=== PATIENT | male | born 1950 | race Caucasian/White ===

== ENCOUNTER 2018-05-20 06:08 | Inpatient (IN) ==
[2018-05-20] MEDS ORDERED: Chlorhexidine Gluconate 2% 1 Pack (2 Cloths) TOPICAL SCH (06:45)
[2018-05-20] MEDS ORDERED: ceFAZolin 2 GM IV; once IV.SIG SCH (06:45)
[2018-05-20] MEDS ORDERED: Metoprolol Tartrate 25 MG Tablet PO SCH (06:45)
[2018-05-20] MEDS ORDERED: Sodium Chlor 0.9% Inj 500 ML IV.SIG SCH (07:00)
[2018-05-20] MEDS ORDERED: Sugammadex Inj 200 MG/2 ML Vial IV.PUSH ONE (08:22)
[2018-05-20] MEDS ORDERED: Famotidine PF Inj 20 MG/2 ML Vial ONE (08:22)
--- NOTE | 2018-05-20 10:02 | P.OP ---
- Preoperative Diagnosis (1) Diverticulitis - Postoperative Diagnosis (1) Benign bladder mass (2) Diverticulitis Date of procedure: 05/20/18 Procedure: Cystoscopy with biopsy of bladder mass and placement of bilateral ureteral catheters Anesthesia: JANELL Surgeon: Lucho Kowalski DO Estimated blood loss (mL): 0 Operation and Findings: 68-year-old male who elected to undergo robotic colectomy by Dr. Barajas for history of diverticular disease. Request made for bilateral ureteral catheter insertion. The patient was brought to the operating room and placed in the dorsal lithotomy position. He was prepped and draped in usual sterile fashion received preprocedure antibiotics and received general endotracheal tube anesthesia. 22 Libyan cystoscope was inserted the bladder and near the left ureteral orifice at the trigone a little frondular area was identified. Using the cold cup biopsy forceps this was biopsied. This was sent to pathology. The left ureteral orifice was identified and a 5 Libyan open-ended catheter inserted in the left ureter without difficulty. This was repeated on the right side without difficulty. The Thakkar was then inserted and the catheters were attached to the Thakkar. The patient tolerated procedure well.
[2018-05-20] MEDS ORDERED: Phenylephrine/NS 1000 MCG/10ML Syringe IV.PUSH ONE (12:00)
[2018-05-20] MEDS ORDERED: Lidocaine PF 1% Inj 5 ML Syringe INFILTRATN ONE (12:00)
[2018-05-20] MEDS ORDERED: Glycopyrrolate Inj 1 MG/5 ML Syringe IV.PUSH ONE (12:00)
[2018-05-20] MEDS ORDERED: Heparin - SQ 10,000 UNITS/ML Vial SQ SCH (14:15)
[2018-05-20] MEDS ORDERED: fentaNYL Citrate Inj 100 MCG/2 ML Ampul ONE (14:40)
[2018-05-20] MEDS ORDERED: Morphine Inj 4 MG/ML Vial ONE (14:40)
[2018-05-20] MEDS ORDERED: Morphine Inj 30 MG/30 ML PCA.VIAL PCA ONE (14:41)
[2018-05-20] MEDS ORDERED: *Meperidine Inj 25 MG/ML Vial PERIprocedural Use ONLY ONE (14:57)
[2018-05-20] MEDS: Dextrose 5%/NaCl 0.9% Inj 1,000 ML IV.CONT SCH ×2 (15:12→23:15)
[2018-05-20] MEDS ORDERED: Naloxone Inj 0.4 MG/ML Vial IV.PUSH PRN (15:17)
[2018-05-20 15:19] LABS: Baso % (Auto) 0.1 % (0.0-2.0); Hematocrit 41.1 % (39.0-51.0); Hemoglobin 13.8 gm/dL (13.0-17.0); Lymph # (Auto) 0.5 th/mm3 (1.0-4.8); Lymph % (Auto) 4.3 % (9.0-44.0); Mean Corpuscular HGB Conc 33.5 % (32.0-36.0); Mean Corpuscular Hemoglobin 31.1 pg (27.0-34.0); Mean Corpuscular Volume 92.8 fL (80.0-100.0); Mono # (Auto) 0.3 th/mm3 (0.0-0.9); Mono % (Auto) 2.9 % (0.0-8.0); Neut % (Auto) 92.7 % (16.0-70.0); Platelet Count 148 th/mm3 (150-450); Red Blood Count 4.42 mil/mm3 (4.50-5.90); Red Cell Distribution Width 13.4 % (11.6-17.2); White Blood Count 11.8 th/mm3 (4.0-11.0)
--- NOTE | 2018-05-20 15:20 | MP ---
cc: Alexandria Barajas MD, Gregory P DO DATE OF OPERATION: 05/20/2018 PREOPERATIVE DIAGNOSIS: Chronic diverticulitis. POSTOPERATIVE DIAGNOSES: 1. Chronic diverticulitis. 2. Adhesions. PROCEDURE PERFORMED: 1. Extensive robotic/laparoscopic lysis of adhesions. 2. Sigmoid resection. 3. Takedown of splenic flexure. SURGEON: Alexandria Barajas MD COUNTY DIRECTOR WELFARE: [place]. ANESTHESIA: General per ET tube. ESTIMATED BLOOD LOSS: 100 mL. OPERATIVE INDICATIONS: The patient is a 68-year-old male who has had multiple attacks of diverticulitis in the past, 3 in the last year. OPERATIVE COURSE: The patient was brought to the operating room and placed in the supine position. After induction of general anesthesia, the patient was placed in Geovanni stirrups and all bony prominences were carefully padded. The skin of the anterior abdominal wall as well as the perineal area was then prepped and draped in the usual sterile fashion. Dr. Kowalski then came in and performed cystoscopy and placement of bilateral ureteral catheters; please see his operative note for details. A site was then chosen for the camera, being located 2 cm to the right and above the umbilicus. A 10/12 trocar was placed at this location, under direct vision using the laparoscope. CO2 insufflation was then undertaken and a brief abdominal survey was performed. He did have some adhesions down in the right lower quadrant, but there was nothing else noted that would preclude the robotic approach. The #1 port, a #10/12, was placed just inside the right anterior superior iliac spine, and a #5 assist port was placed just underneath the costal margin, equidistant from the #1 and the camera port. The patient was hydroplaned with head down and slightly to the right and the small bowel was brought up and out of the pelvis. There was a small amount of small bowel that was adherent and this was dissected free using electrocautery. The descending colon was then examined and it did have quite a bit of adhesions up just around the splenic flexure and it was also quite short, so I did feel that we would need to take down the splenic flexure. The #2 port was then placed 3 fingerbreadths above the umbilicus, in the left midclavicular line, and the #3 port was placed on the umbilical line, in the left anterior axillary line. The robot was then docked. The sigmoid colon was retracted down and to the left, and the peritoneum was scored on the right. Dissection then continued posterior to the superior hemorrhoidal vessels until the left ureter was clearly identified and swept away from the specimen. The vessels were then dissected free circumferentially, and a white load of the [place] [employer] stapler was placed across the bowel at this level. This was closed, held for 30 seconds, fired and removed. There was no sign of any significant bleeding noted. The dissection then continued posteriorly down to the mid rectum. Dissection then continued in a cephalad direction, freeing the descending colon mesentery from Gerota's fascia to the furthest extent cephalad that we could get. The sigmoid colon was then carefully dissected free from its fairly copious adhesions to the left lateral pelvic sidewall and this dissection was continued up the lateral gutter meeting our previous dissection posteriorly. Dissection then continued up to the level of the splenic flexure, but not around it. There was quite a bit of omentum plastered over the top of the splenic flexure. The robot was then redocked over the left shoulder. The omentum was pulled away from the transverse colon and dissection was continued in this plane until a window was made. The dissection continued, and was quite difficult just due to the fatty tissue and everything being fairly adherent in this area, but eventually we were able to dissect through the adhesions and free the splenic flexure along its length, back to the level of the mid transverse colon. At this point, we had adequate length to come down all the way to the rectum. The bowel was evaluated where I had peeled the omentum off and it looked pink and healthy. The robot was again redocked over the left hip and dissection continued in the pelvis, freeing the right and left side up and around, but not into the cul-de-sac. Eventually, we had nice mobility of the bowel. A sponge stick was placed in the rectum and came up nicely to the proximal rectum-mid rectum junction. A site was then chosen for division, just distal to the junction, and the mesentery was divided using the Harmonic scalpel. A 29 EEA stapler was placed into the anus and advanced to that area and came up without difficulty. An [place] [employer] stapler was placed across the bowel at this level. This was fired and removed, and the proximal stapled end of the bowel was grasped with a locking grasper. The robot was then undocked. A 10-12 cm transverse incision was made in the suprapubic area. Using electrocautery, dissection was carried down to the fascia of the anterior abdominal wall, which was split. The medial fibers of the rectus abdominis muscle were split, and the posterior fascia was incised the length of the skin incision as well. A wound protector was then placed and the proximal stapled end of the bowel was grasped and gently pulled up and out through the incision. A site was chosen for proximal division of the bowel where the bowel appeared pink and healthy circumferentially and came down nicely to the pubic tubercle. The mesentery at this level was serially divided and ligated using 0 Vicryl ties, and a pursestring stapling device was placed across the bowel at this level. The distal bowel was amputated and was taken to the back table where it was later opened and sent for pathology. The anvil from the 29 EEA stapler was placed into the cut end of the bowel and the previously placed pursestring suture was then secured. The pelvis was then irrigated out and there was no sign of any significant bleeding. The 29 EEA stapler was advanced through the anus and up to the rectal stump without difficulty. The spike was advanced just anterior to the staple line. The anvil was to the spike, being careful that the bowel was not twisted. The stapler was closed, held for 30 seconds, fired, and removed, thus creating an enteroenterotomy. Enterotomy appeared pink and healthy circumferentially and both anastomotic rings were complete. A small amount of warm normal saline was placed in the pelvis and proximal digital occlusion of the bowel was performed. Air was insufflated into the rectum until tension was noted on the anastomosis with no sign of leakage noted. The air was desufflated to the extent possible and the saline was suctioned out of the pelvis. The bowel lay in a nice orientation with no tension. The posterior fascia of the anterior abdominal wall at the suprapubic incision was closed in a running fashion, using #1 PDS, and the anterior fascia was closed in the same fashion. The wound was copiously irrigated with warm normal saline. The skin was closed in a running subcuticular fashion using 3-0 Vicryl. CO2 insufflation was then resumed and a brief abdominal survey was performed. Surgicel powder was then dusted into the pelvis and into the left upper quadrant to take care of any possible oozing that might be in these areas of heavy dissection. The 10/12 trocar site at the umbilicus and the right lower quadrant were then closed using the crossbow device and a #1 PDS suture. The trocar sites were irrigated with warm normal saline and the skin was closed in an interrupted subcuticular fashion using 3-0 Vicryl. Steri-Strips and sterile dressings were then applied. The right ureteral stent was then removed. All sponge, needle and instrument counts were correct and the patient was returned to the Postanesthesia Care Unit in stable condition. MD COMPA Celaya/CHERISE , 02:21 PM , 02:38 PM VICKEY
[2018-05-20 15:45] LABS: Calcium 7.4 mg/dL (8.5-10.1); Potassium 4.2 meq/L (3.5-5.1)
[2018-05-20] MEDS: Morphine Inj 30 MG/30 ML PCA.VIAL PCA PRN (15:48)
[2018-05-20] MEDS ORDERED: Morphine Inj 30 MG/30 ML PCA.VIAL PCA PRN (16:00)
[2018-05-20] MEDS ORDERED: Balanced Salt Opth Irrigation 15 APPLIC/15 ML Bottle ONE (18:23)
[2018-05-20] MEDS ORDERED: Tetracaine 0.5% Opth Drops 4 ML Bottle ONE (18:24)
[2018-05-20] MEDS ORDERED: Balanced Salt Opth Irrigation 15 APPLIC/15 ML Bottle LEFT EYE ONE (20:00)
[2018-05-20] MEDS ORDERED: Tetracaine 0.5% Opth Drops 4 ML Bottle LEFT EYE ONE (20:00)
[2018-05-20] MEDS: Famotidine PF Inj 20 MG/2 ML Vial IV.PUSH SCH (21:07)
[2018-05-21] MEDS: Heparin - SQ 10,000 UNITS/ML Vial SQ SCH ×2 (02:47→14:21)
[2018-05-21 05:02] LABS: Hematocrit 37.3 % (39.0-51.0); Hemoglobin 12.8 gm/dL (13.0-17.0); Lymph # (Auto) 0.9 th/mm3 (1.0-4.8); Lymph % (Auto) 7.1 % (9.0-44.0); Mean Corpuscular HGB Conc 34.4 % (32.0-36.0); Mean Corpuscular Hemoglobin 31.8 pg (27.0-34.0); Mean Corpuscular Volume 92.3 fL (80.0-100.0); Mono # (Auto) 1.1 th/mm3 (0.0-0.9); Mono % (Auto) 9.3 % (0.0-8.0); Neut # (Auto) 10.1 th/mm3 (1.8-7.7); Neut % (Auto) 83.6 % (16.0-70.0); Platelet Count 169 th/mm3 (150-450); Red Blood Count 4.04 mil/mm3 (4.50-5.90); Red Cell Distribution Width 13.2 % (11.6-17.2)
[2018-05-21 05:31] LABS: Calcium 7.3 mg/dL (8.5-10.1); Potassium 4.2 meq/L (3.5-5.1)
[2018-05-21 05:44] LABS: Total Protein 5.8 g/dL (6.4-8.2)
[2018-05-21] MEDS: Dextrose 5%/NaCl 0.9% Inj 1,000 ML IV.CONT SCH (06:04)
[2018-05-21] MEDS: Morphine Inj 30 MG/30 ML PCA.VIAL PCA PRN ×3 (07:27→17:58)
[2018-05-21] MEDS: Famotidine PF Inj 20 MG/2 ML Vial IV.PUSH SCH ×2 (09:00→22:13)
--- NOTE | 2018-05-21 10:58 | P.PNCS ---
Subjective Interval history: C/R Surg POD #1 afebrile, VSS UO good no appet Objective Result Diagrams: 05/21/18 04:22 05/21/18 04:22 Objective Remarks: PE alert Abd - full, +tympany, wound dry Assessment and Plan - Plan Imp: stable post-op OOB decr IVF tx to floor
[2018-05-21] MEDS: Sodium Chloride 0.45 % Inj 1,000 ML IV.CONT SCH ×2 (11:09→22:17)
[2018-05-21] MEDS: Acetaminophen 325 MG Tablet PO PRN ×2 (11:55→22:12)
[2018-05-22] MEDS: Heparin - SQ 10,000 UNITS/ML Vial SQ SCH ×2 (03:36→15:00)
[2018-05-22 04:35] LABS: Baso % (Auto) 0.2 % (0.0-2.0); Eos % (Auto) 0.2 % (0.0-4.0); Hematocrit 34.3 % (39.0-51.0); Hemoglobin 11.9 gm/dL (13.0-17.0); Lymph % (Auto) 12.5 % (9.0-44.0); Mean Corpuscular HGB Conc 34.6 % (32.0-36.0); Mean Corpuscular Volume 92.4 fL (80.0-100.0); Mean Platelet Volume 8.2 fL (7.0-11.0); Mono # (Auto) 0.6 th/mm3 (0.0-0.9); Mono % (Auto) 7.8 % (0.0-8.0); Neut # (Auto) 6.6 th/mm3 (1.8-7.7); Neut % (Auto) 79.3 % (16.0-70.0); Platelet Count 133 th/mm3 (150-450); Red Blood Count 3.72 mil/mm3 (4.50-5.90); Red Cell Distribution Width 13.3 % (11.6-17.2); White Blood Count 8.3 th/mm3 (4.0-11.0)
[2018-05-22 04:55] LABS: Calcium 7.7 mg/dL (8.5-10.1); Carbon Dioxide 25.8 meq/L (21.0-32.0); Potassium 3.7 meq/L (3.5-5.1)
[2018-05-22] MEDS: Acetaminophen 325 MG Tablet PO PRN (09:20)
[2018-05-22] MEDS: Famotidine PF Inj 20 MG/2 ML Vial IV.PUSH SCH ×2 (09:20→21:29)
[2018-05-22] MEDS: Sodium Chloride 0.45 % Inj 1,000 ML IV.CONT SCH ×2 (09:27→21:30)
--- NOTE | 2018-05-22 11:06 | P.PNCS ---
Subjective Interval history: C/R Surg POD #2 afebrile, VSS UO good less cramps Objective Result Diagrams: 05/22/18 03:46 05/22/18 03:46 Objective Remarks: PE Abd -soft, wound dry Assessment and Plan - Plan Imp: OOB decr IVF adv diet
[2018-05-22] MEDS: Morphine Inj 30 MG/30 ML PCA.VIAL PCA PRN (12:28)
[2018-05-23] MEDS: Heparin - SQ 10,000 UNITS/ML Vial SQ SCH (04:06)
[2018-05-23 08:40] VITALS: TEMP 98.4
[2018-05-23] MEDS: Famotidine PF Inj 20 MG/2 ML Vial IV.PUSH SCH (08:42)
[2018-05-23] MEDS: Sodium Chloride 0.45 % Inj 1,000 ML IV.CONT SCH (10:02)
[2018-05-23 12:15] VITALS: BP 126/85; PULSE 74; RESP 18; O2SAT 96
--- NOTE | 2018-05-23 14:27 | P.PN ---
Subjective Interval history: POD#3 s/p robotic LAR comfortable with pain meds, wants to go home Physical Exam Vital signs: Vital Signs 05/22/18 16:00 05/22/18 20:00 05/23/18 00:00 Temperature 98.1 F 99 F 98.3 F Pulse Rate 66 63 70 Respiratory Rate 18 16 16 Blood Pressure 131/90 144/93 H 125/80 Pulse Oximetry 94 L 94 L 95 05/23/18 04:00 05/23/18 08:00 05/23/18 12:00 Temperature 98.4 F 98.4 F Pulse Rate 70 84 74 Respiratory Rate 16 20 18 Blood Pressure 121/89 136/80 126/85 Pulse Oximetry 96 97 96 Intake & Output 05/22/18 05/23/18 05/23/18 18:59 06:59 18:59 Intake Total 2400 / 2400 1650 / 1650 3500 / 3500 Output Total 1710 / 1710 2300 / 2300 Balance 690 / 690 -650 / -650 3500 / 3500 Intake: IV 1000 / 1000 1000 / 1000 3500 / 3500 1/2 Normal Saline Inj 1,000 ML 1000 / 1000 1000 / 1000 1000 / 1000 @ 84 mls/hr IV.CONT .[id number] KATHIA Rx#:[id number] NS Inj 500 ML @ 30 mls/hr IV. 500 / 500 SIG .Q10H KATHIA Rx#:[id number] Oral 1400 / 1400 650 / 650 Output: Urine 1710 / 1710 2300 / 2300 Other: Date of Last Bowel Movement 05/20/18 05/20/18 # Bowel Movements 1 0 - Routine Abdominal Exam Comments: soft, mild distension, tender wounds clean - Urinary Catheter Management 3-way Urethral Cath placed during this visit: yes, but has since been removed by the nurse Reason for continuing: Decision to DC catheter Insertion date: 05/20/18 Insertion time: 14:35 Removal date: 05/22/18 Removal time: 11:30 Results - Labs CBC & Chem 7: 05/22/18 03:46 05/22/18 03:46 Assessment and Plan - Assessment (1) Diverticulitis Code(s): K57.92 - Diverticulitis of intestine, part unspecified, without perforation or abscess without bleeding Status: Acute - Plan Doing well Passing stool/gas Home today
--- NOTE | 2018-05-23 14:46 | MD ---
cc: Alexandria Barajas MD DATE OF DISCHARGE: 05/23/2018 ADMISSION DIAGNOSIS: Diverticulitis. DISCHARGE DIAGNOSIS: Diverticulitis. PROCEDURES: 1. Cystoscopy with placement of bilateral ureteral catheters and a bladder biopsy. 2. Robotic low anterior resection with extensive lysis of adhesions. HOSPITAL COURSE: The patient was admitted to the hospital on 05/20/2018 after an outpatient bowel prep. He was taken to the operating room where he underwent the above-named procedures. Postoperatively, he had rapid return of bowel and bladder function, and was discharged home with instructions to followup with myself in the office. Final pathology was not available at the time of discharge. Alexandria Barajas MD KW/TL , 02:34 PM , 02:39 PM MTDD
== END 2018-05-23 15:29 | disposition home or self-care (01) ==
LOC: HSDI 06:08 → HCIS 18:46
PROVIDERS: ADMIT Colon & Rectal Surgery; ATTEND Colon & Rectal Surgery